=== PATIENT | male | born 1940 | race Caucasian/White ===

== ENCOUNTER 2017-01-16 13:26 | Emergency (ER) | payer OTHER, MEDICAID ==
[~2017-01-16] VITALS: Ht 177.8 cm; Wt 80.7 kg
[2017-01-16 13:30] VITALS: BP_SYST 159
--- NOTE | 2017-01-16 13:30 | NUR ---
Pt BIB BLS and placed to ER bed 5. Pt states that he tripped and fell onto concrete. Quarter sized abrasion to posterior head. 5 cm lac to digit 5 of LHA. Bleeding controlled. Denies LOC. [id number]. Family member at bedside.
--- NOTE | 2017-01-16 14:00 | NUR ---
Dr. Cast at bedside to assess pt.
[2017-01-16] MEDS ORDERED: MORPHINE 4 MG/ML INJ. SYRINGE IVP ONE (15:45)
[2017-01-16] MEDS ORDERED: KETOROLAC TROMETHAMINE 30 MG VIAL IM ONE (15:45)
[2017-01-16] MEDS ORDERED: ONDANSETRON 4 MG ODT TAB PO ONE (15:45)
--- NOTE | 2017-01-16 16:28 | NUR ---
admininstered morphine 4 IM route as per MD order chenged from IVP
[2017-01-16] MEDS ORDERED: MORPHINE 4 MG/ML INJ. SYRINGE IM ONE (16:30)
[2017-01-16] MEDS ORDERED: LIDOCAINE/EPI 1% 1:100000 20 ML VIAL INJ ONE (17:00)
--- NOTE | 2017-01-16 17:45 | NUR ---
Dr Cast at bedside to repair Laceration to digit 5 of LHA. Laceration approx 5 cm in length.
--- NOTE | 2017-01-16 17:45 | NUR ---
Vicenta novoa in ED - 01/16/17 at [address] Cast at bedside to perform sutures on digit 2 of RHA.
[2017-01-16] MEDS ORDERED: LIDOCAINE 1%, 20 ML MDV 20 ML ONE (18:00)
--- NOTE | 2017-01-16 18:20 | NUR ---
Site to posterior head cleansed with NS. Site measures approximately Quarter sized. Bacitracin applied, Non adherent dressing applied, secured with kerlex. Laceration to Digit 5 of LHA cleansed with NS. Site measures approximately 5 cm Bacitracin applied, Non adherent dressing applied, secured with kerlex. Tetanus vaccination current.
[2017-01-16] MEDS ORDERED: HYDROcodone/ACETAMIN 5-325 MG TAB (NORCO/ VICODIN) PO ONE (19:00)
[2017-01-16] MEDS ORDERED: BACITRACIN 1 GM OINT TP ONE (19:01)
[2017-01-16 19:15] VITALS: BP_SYST 145
--- NOTE | 2017-01-16 19:15 | NUR ---
Patient given written and verbal discharge instructions and verbalizes understanding. ER MD discussed with patient the results and treatment provided. Patient in stable condition. ID arm band removed. Rx of Augmentin and [place] given. Patient educated on pain management and to follow up with PMD. Pain Scale 0/10. Opportunity for questions provided and answered.
== END 2017-01-16 19:15 | disposition home or self-care (01) ==
LOC: SED 13:26
DX: S61.217A Laceration without foreign body of left little finger without damage to nail, initial encounter (principal); S20.229A Contusion of unspecified back wall of thorax, initial encounter; S09.90XA Unspecified injury of head, initial encounter; I10 Essential (primary) hypertension; W01.0XXA Fall on same level from slipping, tripping and stumbling without subsequent striking against object, initial encounter; Y93.89 Activity, other specified; Y92.89 Other specified places as the place of occurrence of the external cause; Y99.8 Other external cause status
CPT/HCPCS: 12002; 70450; 72125; 72128; 73130; 96372; 99284; J1885; J2001; J2270; Q0162